=== PATIENT | male | born 1990 | race Caucasian/White ===

== ENCOUNTER 2016-08-25 11:35 | Day surgery (SDC) | payer OTHER ==
[~2016-08-25 11:35] MED LIST: CLINDAMYCIN 900 MG/D5W RTU 50 ML IV PRN; DEXAMETHASONE SOD PHOSPHATE INJ 4 MG/1 ML VIAL ONE; LACTATED RINGERS 1000 ML IV PRN; LIDOCAINE 0.5% INJ-PF (5 MG/ML) 50 ML SDV SUBCUT PRN; LIDOCAINE 2% INJ-PF (20 MG/ML) 10 ML AMPUL ONE; MORPHINE SULFATE 10 MG/ML INJ IV PRN; ONDANSETRON HCL INJ/PF 4 MG/2 ML SDV IV PRN; ONDANSETRON HCL INJ/PF 4 MG/2 ML SDV ONE
[2016-08-25] MEDS ORDERED: FAMOTIDINE INJ/PF 20 MG/2 ML SDV IV ONE ×2 (13:56→14:00)
[2016-08-25] MEDS ORDERED: RINGERS SOLUTION,LACTATED 500 ML IV ONE (14:00)
[2016-08-25] MEDS ORDERED: HYDROMORPHONE HCL INJ/PF 2 MG/ML AMPULE ONE (14:09)
[2016-08-25] MEDS ORDERED: FENTANYL CITRATE INJ/PF 100 MCG/2 ML AMPUL ONE (14:09)
[2016-08-25] MEDS ORDERED: PROPOFOL INJ 200 MG/20 ML VIAL IV ONE (14:10)
[2016-08-25] MEDS ORDERED: MIDAZOLAM 2 MG/2 ML INJ ONE (14:10)
[2016-08-25] MEDS ORDERED: BUPIVACAINE HCL 0.25 % INJ/PF (2.5 MG/1 ML) 30 ML VIAL ONE (14:30)
[2016-08-25] MEDS ORDERED: FENTANYL CITRATE INJ/PF 100 MCG/2 ML AMPUL IV PRN ×3 (14:49)
[2016-08-25] MEDS ORDERED: PROMETHAZINE HCL INJ 25 MG/1 ML VIAL IV PRN (14:49)
[2016-08-25] MEDS ORDERED: DIPHENHYDRAMINE HCL 50 MG/ML VIAL IV PRN (14:49)
[2016-08-25] MEDS ORDERED: MEPERIDINE HCL/PF INJ 25 MG/1 ML DISP.SYRIN IV PRN (14:49)
--- NOTE | 2016-08-25 15:19 | Brief Operative Note ---
BRIEF OPERATIVE REPORT DATE OF SURGERY: 08/25/16 TIME OF SURGERY: 14:00 PREOPERATIVE DIAGNOSIS: right hydrocele POSTOPERATIVE DIAGNOSIS: right hydrocele SURGEON: MASSIMO QUEZADA 1ST BRICKLAYER PAVING BRICK: SAMY BEST FINDINGS: right hydrocele removed COMPLICATIONS: none ESTIMATED BLOOD LOSS: 2 TISSUE REMOVED OR ALTERED: none TECHNICAL PROCEDURE: right hydrocelectomy
[2016-08-25] MEDS ORDERED: OXYCODONE-ACETAMINOPHEN 5-325 MG TABLET PO PRN ×2 (15:47→15:48)
[2016-08-25] MEDS ORDERED: MORPHINE SULFATE 10 MG/ML INJ IV PRN (15:49)
[2016-08-25] MEDS ORDERED: ONDANSETRON HCL INJ/PF 4 MG/2 ML SDV IV PRN (15:49)
--- NOTE | 2016-08-25 17:53 | OPERATIVE REPORT E ---
Operative Report NAME: MIKALA BREWER : 1990 AGE: 25Y DATE OF SURGERY: 08/25/2016 ROOM: PREOPERATIVE DIAGNOSIS: RIGHT HYDROCELE. POSTOPERATIVE DIAGNOSIS: RIGHT HYDROCELE. OPERATION: Right hydrocelectomy. SURGEON: Jared Hunt M.D. DOWEL MACHINE OPERATOR: Carlos A Yeager D.O. ANESTHESIA: General LMA. ESTIMATED BLOOD LOSS: 3 mL. IV FLUIDS: 600 mL of Ringer lactate. DRAINS, TUBES AND LINES: None. COMPLICATIONS: None. CONDITION: Stable. 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 He presents for above procedure after pain secondary to hydrocele and discussion of risks and benefits and alternatives. DESCRIPTION OF SURGERY: The patient was identified in the preoperative holding area. The surgery with all the attendant risks and benefits were again described in detail with the patient. He confirmed and consents to proceed and was given clindamycin 900 mg prior to going back to the operating room. Once in the operating room, he had sequential compression devices placed. These were cycled prior to induction of general LMA anesthesia. He then had his genitalia prepped and draped in the usual sterile fashion. A surgical timeout was performed and all in agreement. We then started the case. We started by marking the midline raphe and then marking a right lateral scrotal wall incision approximately 3 cm in size. We incised this with a scalpel and delivered the testis. After the incision, we divided all the cremasterics and then we opened the hydrocele sac sharply and evacuated the fluid. The hydrocele sac was open longitudinally and we then cauterized the edges for hemostasis and we everted the hydrocele sac posterior to the cord and plicated it with interrupted [id number] posterior to the cord in a Jaboulay ligation fashion. Once this was done, we irrigated and were satisfied that we had good hemostasis. We achieved hemostasis using Bovie electrocautery judiciously. We then replaced the testis back in the scrotum in the normal anatomical location and confirmed that there was no twist in the cord and the testis was in the appropriate location and lie. We then grasped the dartos and cremasterics together and elevated and then closed that in a running stitch of 3-0 Vicryl. Notably, prior to replacing the testis and closing that first layer, we did use 0.25% Marcaine plain in a cord block, used 6 mL in the cord for purposes of postoperative pain control. Once we had closed the first layer, we used an additional 6 mm of 0.25% Marcaine plain in the deep layer for purposes of postoperative pain control. We then closed the skin with running horizontal mattress stitch of 4-0 Monocryl. We then cleaned the patient, applied skin glue to the incision and then place Fluff gauze and scrotal support over the wound. The patient was then was awakened from anesthesia and transferred to PACU in stable condition to be recovered. Plan is for discharge per the PACU protocol. He will follow up in the clinic after having 2 weeks of convalescent leave followed by 2 weeks of light duty. DICTATING PHYSICIAN: Jared Hunt MD [id number] PHY#: [id number] ID: [id number] JOB#: [id number] ACCT: [id number] cc:Jared Hunt M.D. >
[2016-08-25 18:04] VITALS: BP 112/68
== END 2016-08-25 18:10 | disposition home or self-care (01) ==
LOC: OROUT 11:35
PROVIDERS: ATTEND Urology
PROC: 0VBF0ZZ Excision of Right Spermatic Cord, Open Approach (ICD-10-PCS; principal; 2016-08-25 13:30)
DX: N43.3 Hydrocele, unspecified (principal); Z88.0 Allergy status to penicillin; Z88.1 Allergy status to other antibiotic agents
CPT/HCPCS: 55500; J2250; J1100; J1170; J2405; J2704; S0028; J3490; 920; J3010